=== PATIENT | female | born 1975 | race Caucasian/White ===

== ENCOUNTER 2021-09-06 16:36 | Emergency (ER) | payer BC ==
[~2021-09-06] VITALS: Ht 167.6 cm; Wt 90.0 kg
[~2021-09-06 16:36] MED LIST: MUCINEX600 MG PO; PROTONIX40 M2 PO; QVAR80 MCG IN; SINGULAIR10 MG PO
[2021-09-06 18:18] VITALS: BP 140/90
[2021-09-06] MEDS ORDERED: IBUPROFEN600 MG PO (19:32)
== END 2021-09-06 19:52 | disposition home or self-care (01) | DRG 556 ==
LOC: ED 16:36
DX: M25.522 Pain in left elbow (principal); M25.521 Pain in right elbow; M25.531 Pain in right wrist; W01.0XXA Fall on same level from slipping, tripping and stumbling without subsequent striking against object, initial encounter